=== PATIENT | male | born 1965 | race Caucasian/White ===

== ENCOUNTER 2019-02-02 09:04 | Day surgery (SDC) | payer OTHER, BC | END 2019-02-02 15:15 | disposition home or self-care (01) | LOC: JASU-SURG 09:04 ==

== ENCOUNTER 2023-03-04 04:28 | Day surgery (SDC) | payer OTHER ==
[2023-03-03 13:07] VITALS: BMI 40.3
[~2023-03-04 04:28] MED LIST: BUPIVACAINE HCL/PF 0.5% (5MG/ML) 10 ML VIAL IJ ONE; ceFAZolin SODIUM 1 GM VIAL IVPB ONE
[2023-03-04] MEDS ORDERED: BUPIVACAINE HCL/PF 0.5% (5MG/ML) 10 ML VIAL ONE (13:31)
[2023-03-04] MEDS ORDERED: LIDOCAINE HCL 1%, 10 MG/ML (10ML VIAL) MDV ONE (13:31)
[2023-03-04] MEDS ORDERED: BACITRACIN ZINC 15 GM TUBE TOPICAL OINTMENT ONE (13:32)
[2023-03-04] MEDS ORDERED: LIDOCAINE HCL/PF 2% SDV 5ML VIAL ONE (13:36)
[2023-03-04] MEDS ORDERED: MIDAZOLAM HCL 2 MG/2 ML SINGLE DOSE VIAL ONE (13:37)
[2023-03-04] MEDS ORDERED: PROPOFOL 40 ML ONE (13:37)
[2023-03-04] MEDS ORDERED: CLINDAMYCIN 600MG PREMIX IVPB 1,200 MG/100 ML BAG IVPB ONE (13:57)
[2023-03-04] MEDS ORDERED: CLINDAMYCIN 900 MG PREMIX BAG IVPB ONE (14:00)
[2023-03-04] MEDS ORDERED: ONDANSETRON 4 MG/2 ML VIAL ONE (14:04)
[2023-03-04] MEDS ORDERED: BUPIVACAINE HCL/PF 0.5% (5MG/ML) 10 ML VIAL IJ ONE ×3 (14:15)
[2023-03-04] MEDS ORDERED: BACITRACIN ZINC 15 GM TUBE TOPICAL OINTMENT TP ONE (14:16)
[2023-03-04] MEDS ORDERED: ONDANSETRON 4 MG/2 ML VIAL IVPUSH PRN (14:44)
[2023-03-04] MEDS ORDERED: IBUPROFEN 800 MG/8 ML IJ IVPB PRN (14:44)
[2023-03-04] MEDS ORDERED: LACTATED RINGERS SOLUTION 1,000 ML IV SCH (14:45)
[2023-03-04 15:50] VITALS: RESP 18
[2023-03-04 17:05] VITALS: BP 129/76; PULSE 74; TEMP 98
== END 2023-03-04 16:55 | disposition home or self-care (01) ==
LOC: JASU-SURG 04:28
PROVIDERS: ATTEND Urology
PROC: 0VB60ZZ Excision of Right Tunica Vaginalis, Open Approach (ICD-10-PCS; principal; 2023-03-04 14:00)
DX: N43.3 Hydrocele, unspecified (principal)
CPT/HCPCS: 88302-TC; 94760